=== PATIENT | female | born 1935 | race Caucasian/White ===

== ENCOUNTER 2018-02-15 14:01 | Emergency (ER) | payer MEDICARE ==
--- NOTE | 2018-02-15 15:20 | EDM.PDOC ---
ED HPI GENERAL MEDICAL PROBLEM - General Chief Complaint: General Stated Complaint: AFIB, SOB Time Seen by Provider: 02/15/18 15:22 Source of Information: Reports: Patient History Limitations: Reports: No Limitations - History of Present Illness INITIAL COMMENTS - FREE TEXT/NARRATIVE: pt arrived with a history of atrial fib. . She felt like her heart was racing this am. She did not feel well. Onset: Today Duration: Hour(s): Location: Reports: Chest Associated Symptoms: Reports: Weakness - Related Data Allergies Allergy/AdvReac Type Severity Reaction Status Date / Time Sulfa (Sulfonamide Allergy Hives Verified 02/15/18 14:53 Antibiotics) Home Meds: Home Meds Aspirin [Halfprin] 1 tab PO DAILY 02/15/18 [History] Digoxin 1 tab PO DAILY 02/15/18 [History] Latanoprost 1 drop EYEBOTH DAILY 02/15/18 [History] Losartan Potassium 1 tab PO ASDIRECTED 02/15/18 [History] Triamterene/Hydrochlorothiazid [Triamterene-HCTZ 37.5-25 MG] 1 tab PO DAILY [History] Past Medical History HEENT History: Reports: Cataract, Glaucoma Cardiovascular History: Reports: Afib, Heart Murmur, Hypertension, Other (See Below) Other Cardiovascular History: mitral valve prolapse. Musculoskeletal History: Reports: Other (See Below) Other Musculoskeletal History: polymyalgia Neurological History: Reports: Vertigo, Other (See Below) Other Neuro History: menierres disease. Oncologic (Cancer) History: Reports: Breast, Uterine - Past Surgical History HEENT Surgical History: Reports: Cataract Surgery Cardiovascular Surgical History: Reports: Valve Replacement Female Surgical History: Reports: Hysterectomy Social & Family History - Tobacco Use Smoking Status *Q: Never Smoker - Recreational Drug Use Recreational Drug Use: No ED ROS GENERAL - Review of Systems Review Of Systems: See Below Constitutional: Reports: Fatigue, Other ( slight nausea) HEENT: Reports: No Symptoms Respiratory: Reports: No Symptoms Cardiovascular: Reports: Palpitations, Other (pt felt like her heart was going very rapid. ) Endocrine: Reports: No Symptoms GI/Abdominal: Reports: Nausea : Reports: No Symptoms Musculoskeletal: Reports: No Symptoms Skin: Reports: No Symptoms ED EXAM, GENERAL - Physical Exam Exam: See Below Free Text/Narrative:: pt arrived with a history of being nauseated and feeling like her heart was racing. Exam Limited By: No Limitations General Appearance: Alert, Mild Distress, Other (pupils are equal and reactive. ) Ears: Normal TMs Nose: Normal Inspection Throat/Mouth: Normal Inspection Head: Atraumatic Neck: Normal Inspection Respiratory/Chest: No Respiratory Distress Cardiovascular: Irregularly Irregular, Other ( rate was about 100. ) GI/Abdominal: Soft, Non-Tender (Female) Exam: Deferred Rectal (Female) Exam: Deferred Back Exam: Normal Inspection Extremities: Normal Inspection Neurological: Alert, Oriented, Normal Cognition Psychiatric: Normal Affect Course - Vital Signs Last Recorded V/S: Last Vital Signs Temp 36.6 C 02/15/18 14:48 Pulse 87 02/15/18 14:48 Resp 18 02/15/18 14:48 BP 182/86 H 02/15/18 14:48 Pulse Ox 99 02/15/18 14:48 - Orders/Labs/Meds Orders: Active Orders 24 hr Category Date Time Status UA W/MICROSCOPIC [URIN] Urgent Lab 02/15/18 15:22 Ordered Labs: Laboratory Tests 02/15/18 02/15/18 02/15/18 Range/Units 15:22 15:39 15:39 WBC 6.8 (4.5-11.0) K/uL RBC 4.43 (3.30-5.50) M/uL Hgb 13.5 (12.0-15.0) g/dL Hct 40.9 (36.0-48.0) % MCV 92 (80-98) fL MCH 31 (27-31) pg MCHC 33 (32-36) % Plt Count 160 (150-400) K/uL Neut % (Auto) 65 (36-66) % Lymph % (Auto) 20 L (24-44) % [place] % (Auto) 12 H (2-6) % Eos % (Auto) 3 (2-4) % Baso % (Auto) 1 (0-1) % Sodium 131 L (140-148) mmol/L Potassium 4.2 (3.6-5.2) mmol/L Chloride 97 L (100-108) mmol/L Carbon Dioxide 29 (21-32) mmol/L Anion Gap 9.2 (5.0-14.0) mmol/L BUN 19 H (7-18) mg/dL Creatinine 0.8 (0.6-1.0) mg/dL Est Cr Clr Drug Dosing 41.17 mL/min Estimated GFR (MDRD) > 60 (>60) Glucose 90 (74-106) mg/dL Calcium 9.1 (8.5-10.1) mg/dL Total Bilirubin 0.4 (0.2-1.0) mg/dL AST 25 (15-37) U/L ALT 29 (12-78) U/L Alkaline Phosphatase 63 (46-116) U/L Total Protein 7.3 (6.4-8.2) g/dL Albumin 3.5 (3.4-5.0) g/dL Globulin 3.8 H (2.3-3.5) g/dL Albumin/Globulin Ratio 0.9 L (1.2-2.2) Urine Color Yellow Urine Appearance Clear Urine pH 7.0 (4.5-8.0) Ur Specific [place] 1.010 (1.008-1.030) Urine Protein Negative (NEGATIVE) mg/dL Urine Glucose (UA) Normal (NEGATIVE) mg/dL Urine Ketones Negative (NEGATIVE) mg/dL Urine Occult Blood Negative (NEGATIVE) Urine Nitrite Negative (NEGATIVE) Urine Bilirubin Negative (NEGATIVE) Urine Urobilinogen Normal (NORMAL) mg/dL Ur Leukocyte Esterase Negative (NEGATIVE) Urine RBC 0-5 (0-5) Urine WBC 0-5 (0-5) Ur Epithelial Cells Few Amorphous Sediment Not seen Urine Bacteria Few Urine Mucus Not seen Digoxin (0.90-2.00) ng/mL 02/15/18 Range/Units 15:39 WBC (4.5-11.0) K/uL RBC (3.30-5.50) M/uL Hgb (12.0-15.0) g/dL Hct (36.0-48.0) % MCV (80-98) fL MCH (27-31) pg MCHC (32-36) % Plt Count (150-400) K/uL Neut % (Auto) (36-66) % Lymph % (Auto) (24-44) % [place] % (Auto) (2-6) % Eos % (Auto) (2-4) % Baso % (Auto) (0-1) % Sodium (140-148) mmol/L Potassium (3.6-5.2) mmol/L Chloride (100-108) mmol/L Carbon Dioxide (21-32) mmol/L Anion Gap (5.0-14.0) mmol/L BUN (7-18) mg/dL Creatinine (0.6-1.0) mg/dL Est Cr Clr Drug Dosing mL/min Estimated GFR (MDRD) (>60) Glucose (74-106) mg/dL Calcium (8.5-10.1) mg/dL Total Bilirubin (0.2-1.0) mg/dL AST (15-37) U/L ALT (12-78) U/L Alkaline Phosphatase (46-116) U/L Total Protein (6.4-8.2) g/dL Albumin (3.4-5.0) g/dL Globulin (2.3-3.5) g/dL Albumin/Globulin Ratio (1.2-2.2) Urine Color Urine Appearance Urine pH (4.5-8.0) Ur Specific [place] (1.008-1.030) Urine Protein (NEGATIVE) mg/dL Urine Glucose (UA) (NEGATIVE) mg/dL Urine Ketones (NEGATIVE) mg/dL Urine Occult Blood (NEGATIVE) Urine Nitrite (NEGATIVE) Urine Bilirubin (NEGATIVE) Urine Urobilinogen (NORMAL) mg/dL Ur Leukocyte Esterase (NEGATIVE) Urine RBC (0-5) Urine WBC (0-5) Ur Epithelial Cells Amorphous Sediment Urine Bacteria Urine Mucus Digoxin 0.76 L (0.90-2.00) ng/mL - Re-Assessments/Exams Free Text/Narrative Re-Assessment/Exam: 02/15/18 16:52 lab work is normal. dig level is slightly subtherapeutic. 02/15/18 16:53 Ua was clear Departure - Departure Time of Disposition: 16:53 Disposition: Home, Self-Care 01 Condition: Fair Clinical Impression: Palpitations, Atrial fibrillation - Discharge Information Referrals: PCP,None [Primary Care Provider] - Forms: ED Department Discharge Care Plan Goals: cont same meds, rtc if further problems. She was warned that because of her atrial fib she will have a more variable heart rate. - My Orders Last 24 Hours: My Active Orders 02/15/18 15:22 UA W/MICROSCOPIC [URIN] Urgent - Assessment/Plan Last 24 Hours: My Active Orders 02/15/18 15:22 UA W/MICROSCOPIC [URIN] Urgent
== END 2018-02-15 17:32 | disposition home or self-care (01) ==
LOC: JP.ED 14:01
DX: I48.91 Unspecified atrial fibrillation (principal); I10 Essential (primary) hypertension; Z88.2 Allergy status to sulfonamides; Z79.82 Long term (current) use of aspirin
CPT/HCPCS: 36415; 80053; 80162; 81001; 85025; 99284